=== PATIENT | male | born 1965 | race Hispanic/Latino ===

== ENCOUNTER 2018-11-11 17:39 | Emergency (ER) | payer MEDICAID ==
[2018-11-11] MEDS ORDERED: CLEOCIN 900 MG/50 mL 900 MG/50 ML BAG IV ONE (21:27)
[2018-11-11 22:30] LABS: Basophils # (Auto) 0.1 K/mm3 (0.0-0.1); Eosinophils # (Auto) 0.4 K/mm3 (0.0-0.4); Eosinophils % (Auto) 5.6 % (0.0-4.3); Hematocrit 48.6 % (35.5-45.6); Hemoglobin 16.5 gm/dl (11.8-15.2); Lymphocytes # (Auto) 3.3 K/mm3 (1.2-5.4); Lymphocytes % (Auto) 41.3 % (13.4-35.0); Mean Corpuscular HGB Conc 34 % (32-34); Mean Corpuscular Volume 91 fl (84-94); Monocytes # (Auto) 0.6 K/mm3 (0.0-0.8); Platelet Count 236 K/mm3 (140-440); Red Blood Count 5.34 M/mm3 (3.65-5.03)
[2018-11-11 22:44] LABS: Albumin 4.3 g/dL (3.9-5); Calcium 9.4 mg/dL (8.4-10.2); Hemolysis Index 9
[2018-11-11 22:45] LABS: Bilirubin,Direct < 0.2 mg/dL (0-0.2)
[2018-11-11] MEDS ORDERED: DECADRON IV ONE (23:24)
[2018-11-11] MEDS ORDERED: PEPCID IV ONE (23:24)
[2018-11-11] MEDS ORDERED: BENADRYL IV ONE (23:25)
--- NOTE | 2018-11-11 23:29 | Emergency Department Report ---
- General Chief complaint: Skin/Abscess/Foreign Body Stated complaint: INSECT BITE Time Seen by Provider: 11/11/18 21:00 Source: patient Mode of arrival: Ambulatory Limitations: No Limitations - History of Present Illness Initial comments: Patient is a 53-year-old white male with no past medical history who presents to the ED with complaint of acute onset and itchy erythematous maculopapular rash on the anterior left thigh for the last 3 days after being bitten by an unknown insect. Patient states that the rash has been spreading proximally on his left thigh since the bite. Patient denies fever, chills, nausea, vomiting, dizziness, headache, numbness and tingling of left leg, shortness of breath or chest pain. MD complaint: rash (Anterior left thigh), insect bite/sting -: Sudden, days(s) (3) Tetanus Up to Date: yes Location: LLE (left thigh) Severity: severe Severity scale (0 -10): 7 Quality: burning, aching, sharp, constant Consistency: constant Improves with: none Worsens with: none Context: other (felt insect bite) Associated symptoms: denies other symptoms Treatments Prior to Arrival: none - Related Data Previous Rx's Medication Instructions Recorded Last Taken Type Clindamycin [Clindamycin CAP] 300 mg PO Q8HR #60 capsule 11/11/18 Unknown Rx Ondansetron [Zofran Odt] 4 mg PO Q8HR #15 tab.rapdis 11/11/18 Unknown Rx Prednisone [predniSONE 10 mg 10 mg PO .TAPER #21 tab.ds.pk 11/11/18 Unknown Rx (6-Day Pack, 21 Tabs)] Ranitidine HCl [Zantac] 150 mg PO Q12H #30 tablet 11/11/18 Unknown Rx Sulfamethoxazole/Trimethoprim 1 each PO Q12H #20 tablet 11/11/18 Unknown Rx [Bactrim DS TAB] diphenhydrAMINE [Benadryl CAP] 25 mg PO Q6HR PRN #30 capsule 11/11/18 Unknown Rx Allergies Allergy/AdvReac Type Severity Reaction Status Date / Time No Known Allergies Allergy Unverified 11/11/18 17:40 Abscess Boil HPI - HPI Chief Complaint: Skin/Abscess/Foreign Body Stated Complaint: INSECT BITE Time Seen by Provider: 11/11/18 21:00 Duration: 3 Days Location: Lower Extremity (left thigh) History: Yes Pain, Yes Insect Bite, No Fever, No Purulent Drainage, No Numbness, No Foreign Body, No Previous History HPI: Patient is a 53-year-old white male with no past medical history who presents to the ED with complaint of acute onset and itchy erythematous maculopapular rash on the anterior left thigh for the last 3 days after being bitten by an unknown insect. Patient states that the rash has been spreading proximally on his left thigh since the bite. Patient denies fever, chills, nausea, vomiting, dizziness, headache, numbness and tingling of left leg, shortness of breath or chest pain. Home Medications: Previous Rx's Medication Instructions Recorded Last Taken Type Clindamycin [Clindamycin CAP] 300 mg PO Q8HR #60 capsule 11/11/18 Unknown Rx Ondansetron [Zofran Odt] 4 mg PO Q8HR #15 tab.rapdis 11/11/18 Unknown Rx Prednisone [predniSONE 10 mg 10 mg PO .TAPER #21 tab.ds.pk 11/11/18 Unknown Rx (6-Day Pack, 21 Tabs)] Ranitidine HCl [Zantac] 150 mg PO Q12H #30 tablet 11/11/18 Unknown Rx Sulfamethoxazole/Trimethoprim 1 each PO Q12H #20 tablet 11/11/18 Unknown Rx [Bactrim DS TAB] diphenhydrAMINE [Benadryl CAP] 25 mg PO Q6HR PRN #30 capsule 11/11/18 Unknown Rx Allergies/Adverse Reactions: Allergies Allergy/AdvReac Type Severity Reaction Status Date / Time No Known Allergies Allergy Unverified 11/11/18 17:40 ED Review of Systems ROS: Stated complaint: INSECT BITE Other details as noted in HPI Comment: All other systems reviewed and negative Constitutional: no symptoms reported, see HPI. denies: chills, diaphoresis, fev er, malaise Eyes: as per HPI. denies: eye discharge, vision change ENT: as per HPI. denies: ear pain, throat pain, dental pain, hearing loss Respiratory: no symptoms reported, see HPI. denies: cough, shortness of breath Cardiovascular: as per HPI. denies: chest pain, palpitations, dyspnea on exe rtion, edema Endocrine: no symptoms reported, see HPI. denies: excessive sweating, flushing, intolerance to heat, increased hunger, increased thirst, unexplained weight gain, unexplained weight loss Gastrointestinal: as per HPI. denies: abdominal pain, nausea, vomiting, diarrhea, constipation, hematemesis, melena Genitourinary: as per HPI. denies: urgency, dysuria, frequency, hematuria Musculoskeletal: as per HPI, arthralgia, other (left thigh pain) Skin: as per HPI, rash (erythematous maculopapular rash on anterior left thigh), change in color (erythematous), pruritus. denies: change in hair/nails Neurological: as per HPI. denies: headache, weakness, numbness, paresthesias, confusion, abnormal gait, vertigo Psychiatric: as per HPI. denies: anxiety, depression, auditory hallucinations, visual hallucinations, homicidal thoughts Hematological/Lymphatic: as per HPI ED Past Medical Hx - Past Medical History Previous Medical History?: No Additional medical history: High cholesterol - Surgical History Additional Surgical History: back, hernia - Social History Smoking Status: Never Smoker Substance Use Type: Alcohol, Marijuana - Medications Home Medications: Home Medications Medication Instructions Recorded Confirmed Last Taken Type Clindamycin [Clindamycin CAP] 300 mg PO Q8HR #60 capsule 11/11/18 Unknown Rx Ondansetron [Zofran Odt] 4 mg PO Q8HR #15 tab.rapdis 11/11/18 Unknown Rx Prednisone [predniSONE 10 mg 10 mg PO .TAPER #21 tab.ds.pk 11/11/18 Unknown Rx (6-Day Pack, 21 Tabs)] Ranitidine HCl [Zantac] 150 mg PO Q12H #30 tablet 11/11/18 Unknown Rx Sulfamethoxazole/Trimethoprim 1 each PO Q12H #20 tablet 11/11/18 Unknown Rx [Bactrim DS TAB] diphenhydrAMINE [Benadryl CAP] 25 mg PO Q6HR PRN #30 capsule 11/11/18 Unknown Rx ED Physical Exam - General Limitations: No Limitations General appearance: alert, in no apparent distress - Head Head exam: Present: atraumatic, normocephalic, normal inspection - Eye Eye exam: Present: normal appearance, PERRL, EOMI. Absent: scleral icterus, conjunctival injection, nystagmus, periorbital swelling, periorbital tenderness Pupils: Present: normal accommodation - ENT ENT exam: Present: normal exam, normal orophraynx, mucous membranes moist, TM's normal bilaterally, normal external ear exam - Neck Neck exam: Present: normal inspection, full ROM. Absent: tenderness - Respiratory Respiratory exam: Present: normal lung sounds bilaterally. Absent: respiratory distress, wheezes, rales, rhonchi, chest wall tenderness, accessory muscle use, decreased breath sounds, prolonged expiratory - Cardiovascular Cardiovascular Exam: Present: regular rate, normal heart sounds. Absent: normal rhythm, bradycardia, tachycardia, irregular rhythm, systolic murmur, rubs - GI/Abdominal GI/Abdominal exam: Present: soft, normal bowel sounds. Absent: distended, tenderness, guarding, rebound, hyperactive bowel sounds, hypoactive bowel sounds, organomegaly - Rectal Rectal exam: Present: deferred - Extremities Exam Extremities exam: Present: normal inspection, full ROM, tenderness (mildly tender left thigh due to erythematous maculopapular rash ), normal capillary refill. Absent: pedal edema, joint swelling, calf tenderness - Expanded Lower Extremity Exam Left Upper Leg exam: Present: tenderness (mildly tender erythematous maculopapular r johanne), erythema - Back Exam Back exam: Present: normal inspection, full ROM. Absent: tenderness, CVA tenderness (L), paraspinal tenderness - Neurological Exam Neurological exam: Present: alert, oriented X3, CN II-XII intact, normal gait, reflexes normal - Psychiatric Psychiatric exam: Present: normal affect - Skin Skin exam: Present: warm, dry, intact, rash (erythematous maculopapular rash on anterior left thigh), erythema, urticaria ED Course Vital Signs 11/11/18 17:51 Temperature 98.1 F Pulse Rate 78 Respiratory 18 Rate Blood Pressure 160/99 O2 Sat by Pulse 98 Oximetry - Reevaluation(s) Reevaluation #1: 11/11/18 23:32 Patient is alert and oriented 3 and is not in distress. Patient was treated in the ED with antibiotics and pain medications, as well as steroids and Benadryl. Labs were drawn and the patient was given Cleocin 900 mg IV 1. Laboratory results were reviewed and are unremarkable with no leukocytosis. Patient is discharged home on pain medication, steroid Dosepak, antibiotic and advised to follow-up with his primary care physician in 2 days for reevaluation or return to the ED immediately if symptoms get worse. ED Medical Decision Making - Lab Data Result diagrams: 11/11/18 21:56 11/11/18 21:56 - Medical Decision Making Patient is alert and oriented 3 and is not in distress. Patient was treated in the ED with antibiotics and pain medications, as well as steroids and Benadryl. Labs were drawn and the patient was given Cleocin 900 mg IV 1. Laboratory results were reviewed and are unremarkable with no leukocytosis. Patient's symptoms are likely due to either acute allergic reaction from an insect bite or cellulitis from insect bite on his left thigh. Lab test results are unrema rkable. Patient is discharged home on pain medication, steroid Dosepak, antibiotic and advised to follow-up with his primary care physician in 2 days for reevaluation or return to the ED immediately if symptoms get worse. - Differential Diagnosis acute allergic reaction, cellulitis of left thigh Critical care attestation.: If time is entered above; I have spent that time in minutes in the direct care of this critically ill patient, excluding procedure time. ED Disposition Clinical Impression: Cellulitis of left lower leg, Allergic to insect bites and stings Acute allergic reaction Qualifiers: Encounter type: initial encounter Qualified Code(s): T78.40XA - Allergy, unspecified, initial encounter Disposition: - TO HOME OR SELFCARE Is pt being admited?: No Does the pt Need Aspirin: No Condition: Stable Instructions: Cellulitis (ED), Insect Bite or Sting (ED), Urticaria (ED) Additional Instructions: Take medication with food, drink plenty of fluids and follow up with your primary care physician in 2-3 days for reevaluation. Return to the ED immediately if symptoms get worse. Prescriptions: Sulfamethoxazole/Trimethoprim [Bactrim DS TAB] 1 each PO Q12H #20 tablet diphenhydrAMINE [Benadryl CAP] 25 mg PO Q6HR PRN #30 capsule PRN Reason: Itching Clindamycin [Clindamycin CAP] 300 mg PO Q8HR #60 capsule Prednisone [predniSONE 10 mg (6-Day Pack, 21 Tabs)] 10 mg PO .TAPER #21 tab.ds.pk Ranitidine HCl [Zantac] 150 mg PO Q12H #30 tablet Ondansetron [Zofran Odt] 4 mg PO Q8HR #15 tab.rapdis Referrals: [facility] MD CHIP [Primary Care Provider] - 3-5 Days Forms: AMA Form Time of Disposition: 23:35 Print Language: TAJIK
[2018-11-11 23:52] VITALS: BP 149/98
[2018-11-12] LABS: Alanine Aminotransferase 33 units/L (7-56); BUN/Creatinine Ratio 33; Blood Urea Nitrogen 20 mg/dL (9-20)
== END 2018-11-11 23:51 | disposition home or self-care (01) ==
LOC: ED 17:39
DX: S70.362A Insect bite (nonvenomous), left thigh, initial encounter (principal); L03.116 Cellulitis of left lower limb; E78.00 Pure hypercholesterolemia, unspecified; F12.10 Cannabis abuse, uncomplicated; W57.XXXA Bitten or stung by nonvenomous insect and other nonvenomous arthropods, initial encounter; Y93.89 Activity, other specified; Y92.89 Other specified places as the place of occurrence of the external cause; Y99.8 Other external cause status
CPT/HCPCS: 36415; 80048; 80076; 82140; 85025; 87040; 96365; 96375; 99283; J1100; J1200